=== PATIENT | male | born 1940 | race Caucasian/White ===

== ENCOUNTER 2023-04-15 20:59 | Emergency (ER) | payer OTHER ==
[~2023-04-15] VITALS: Ht 180.3 cm; Wt 86.2 kg
[2023-04-15] MEDS ORDERED: LIDOCAINE 0.5% HCL 50 ML VIAL ONE (23:25)
[2023-04-16 00:44] VITALS: BP 169/89; TEMP 98; O2SAT 99
== END 2023-04-16 00:46 | disposition home or self-care (01) ==
LOC: ER 21:07
DX: S01.81XA Laceration without foreign body of other part of head, initial encounter (principal); I10 Essential (primary) hypertension; J45.909 Unspecified asthma, uncomplicated; W05.0XXA Fall from non-moving wheelchair, initial encounter; Y93.89 Activity, other specified; Y92.89 Other specified places as the place of occurrence of the external cause; Y99.8 Other external cause status
CPT/HCPCS: 12013; 70450; 99284; J3490